=== PATIENT | female | born 1970 ===

== ENCOUNTER 2017-07-02 17:08 | Emergency (ER) | payer OTHER ==
[2017-07-02 18:17] VITALS: BP 128/65
--- NOTE | 2017-07-02 19:18 | UC ---
Elbow Pain - HPI Summary HPI Summary: 47 yo female with weeks worth of left eblow worse the past couple of days she is right handed no known trauma - History of Current Complaint Chief Complaint: UCUpperExtremity Stated Complaint: LEFT ELBOW COMPLAINT Time Seen by Provider: 07/02/17 18:22 Hx Obtained From: Patient Onset/Duration: Weeks Severity Initially: Mild Severity Currently: Severe Pain Intensity: 7 Pain Scale Used: 0-10 Numeric Location Of Pain: Is Discrete @ - Allergies/Home Medications Allergies/Adverse Reactions: Allergies Allergy/AdvReac Type Severity Reaction Status Date / Time sulfamethoxazole Allergy See Comment Verified 07/02/17 18:18 [From Bactrim] trimethoprim [From Bactrim] Allergy See Comment Verified 07/02/17 18:18 Home Medications: Home Medications Acetaminophen TAB* [Tylenol TAB*] 500 mg PO Q4H PRN 07/02/17 [History Confirmed 07/02/17] DULoxetine DR CAP* [Cymbalta CAP*] 30 mg PO DAILY 07/02/17 [History Confirmed ] Levothyroxine TAB* [Synthroid TAB*] 88 mcg PO DAILY 07/02/17 [History Confirmed 07/02/17] Liraglutide [Victoza 3-Kevin] 0.6 mg SQ DAILY 07/02/17 [History Confirmed 07/02/17 ] Meloxicam 7.5 mg PO DAILY 07/02/17 [History Confirmed 07/02/17] Pregabalin CAP(*) [Lyrica CAP(*)] 50 mg PO DAILY 07/02/17 [History Confirmed ] glipiZIDE TAB* [Glucotrol TAB*] 5 mg PO DAILY 07/02/17 [History Confirmed ] glipiZIDE TAB* [Glucotrol TAB*] 10 mg PO DAILY 07/02/17 [History Confirmed 07/02] metFORMIN* [Glucophage 1000 MG TAB *] 1,000 mg PO BID 07/02/17 [History Confirmed 07/02/17] PMH/Surg Hx/FS Hx/Imm Hx Previously Healthy: Yes Endocrine History: Diabetes, Hypothyroidism - Surgical History Surgical History: Yes Surgery Procedure, Year, and Place: 3 c sections - Family History Known Family History: Positive: Cardiac Disease, Hypertension, Diabetes - Social History Alcohol Use: Occasionally Substance Use Type: None Smoking Status (MU): Never Smoked Tobacco Review of Systems Constitutional: Negative Skin: Negative Eyes: Negative ENT: Negative Respiratory: Negative Cardiovascular: Negative Gastrointestinal: Negative Genitourinary: Negative Motor: Negative Neurovascular: Negative Musculoskeletal: Arthralgia Neurological: Negative Psychological: Negative Is Patient Immunocompromised?: No All Other Systems Reviewed And Are Negative: Yes Physical Exam Triage Information Reviewed: Yes Appearance: Well-Appearing, No Pain Distress, Well-Nourished Vital Signs: Initial Vital Signs Temp 99.1 F 07/02/17 18:12 Pulse 72 07/02/17 18:12 Resp 16 07/02/17 18:12 BP 128/65 07/02/17 18:12 Pulse Ox 100 07/02/17 18:12 Eye Exam: Normal ENT: Positive: Hearing grossly normal. Negative: Nasal congestion, Nasal drainage, Trismus, Muffled voice, Hoarse voice Neck: Positive: Supple, Nontender Respiratory: Positive: Lungs clear, Normal breath sounds, No respiratory distress Cardiovascular: Positive: RRR, No Murmur Musculoskeletal: Positive: ROM Limited @ - left elbow, Edema @ - olecranon Neurological: Positive: Alert, Muscle Tone Normal Psychological Exam: Normal Skin Exam: Normal Diagnostics - Radiology No standard instances Xray Interpretation: No Acute Changes Radiology Interpretation Completed By: Radiologist Elbow Pain Course/Dx - Differential Dx/Diagnosis Provider Diagnoses: left olecranon bursitis. left elbow tendonitis Discharge - Discharge Plan Condition: Stable Disposition: HOME Patient Education Materials: Elbow Bursitis (ED), Tendinitis (ED) Forms: *Work Release Referrals: Marty Morris MD [Medical Doctor] - As Soon As Possible Additional Instructions: increase your meloxcam (mobic) to 7.5 mg twice daily I suggest orthopedic follow up Images Front/Back of Body, Lg ([place]): 1 - tender/swollen olcranon
--- NOTE | 2017-07-02 19:43 | RAD ---
INDICATION: Left elbow pain. No direct trauma. COMPARISON: None TECHNIQUE: AP, lateral, and oblique views were obtained. FINDINGS: The bony structures, joint spaces, and soft tissues are normal for age. IMPRESSION: NEGATIVE EXAMINATION.
== END 2017-07-02 20:08 | disposition home or self-care (01) ==
LOC: UCCORT 17:08
DX: M70.22 Olecranon bursitis, left elbow (principal); M77.9 Enthesopathy, unspecified; E03.9 Hypothyroidism, unspecified; E11.9 Type 2 diabetes mellitus without complications; Z79.84 Long term (current) use of oral hypoglycemic drugs
CPT/HCPCS: 99211; G0463